=== PATIENT | male | born 2005 | race Caucasian/White ===

== ENCOUNTER 2023-12-31 10:58 | Emergency (ER) | payer BC, MEDICAID ==
[~2023-12-31] VITALS: Ht 175.3 cm; Wt 91.7 kg
[2023-12-31 11:10] VITALS: BP 125/69; PULSE 91; RESP 16; O2SAT 97
[2023-12-31] MEDS ORDERED: IBU600T PO (12:48)
== END 2023-12-31 13:13 | disposition home or self-care (01) ==
LOC: ER 10:58
DX: S52.201A Unspecified fracture of shaft of right ulna, initial encounter for closed fracture (principal); W22.8XXA Striking against or struck by other objects, initial encounter; Y93.89 Activity, other specified; Y92.89 Other specified places as the place of occurrence of the external cause; Y99.8 Other external cause status
CPT/HCPCS: 29125; 73090; 73130